=== PATIENT | female | born 1950 | race Caucasian/White ===

== ENCOUNTER 2021-09-15 10:22 | Emergency (ER) | payer MEDICARE, OTHER ==
[~2021-09-15] VITALS: Ht 153.7 cm; Wt 60.5 kg
[2021-09-15 10:29] VITALS: TEMP 98
[2021-09-15 11:00] LABS: COLLECTION METHOD CLEAN CATCH
[2021-09-15 11:08] LABS: MUCOUS Present (NOT PRESENT); PH 6 (5-8); SQUAMOUS EPITHELIAL None Seen /hpf (0-10); URINE APPEARANCE Clear (CLEAR/HAZY); URINE BACTERIA None Seen (NONE SEEN); URINE BILIRUBIN Negative (NEGATIVE); URINE BLOOD Negative (NEGATIVE); URINE COLOR Yellow (YELLOW); URINE GLUCOSE Negative (NEGATIVE); URINE KETONE Negative (NEGATIVE); URINE LEUKOCYTE ESTERASE Negative (NEGATIVE); URINE NITRATE Negative (NEGATIVE); URINE PROTEIN(semi-quant) Negative (NEGATIVE); URINE RBC None Seen /hpf (0-2); URINE UROBILINOGEN Negative (NEGATIVE)
[2021-09-15] MEDS ORDERED: FLEXERIL 1010 MG/TAB PO (11:47)
[2021-09-15] MEDS ORDERED: NORCO 325 MG-51 TAB PO (11:47)
[2021-09-15] MEDS ORDERED: MEDROL 4MG DOSPA4 MG PO (12:00)
[2021-09-15 12:13] VITALS: BP 121/71; PULSE 75
== END 2021-09-15 12:15 | disposition home or self-care (01) ==
LOC: COL.ER 10:22
PROVIDERS: Physician Assistant
DX: M54.16 Radiculopathy, lumbar region (principal); M99.53 Intervertebral disc stenosis of neural canal of lumbar region; I10 Essential (primary) hypertension
CPT/HCPCS: J1885

== ENCOUNTER 2021-11-26 22:21 | Emergency (ER) | payer MEDICARE, OTHER ==
[~2021-11-26] VITALS: Ht 152.4 cm; Wt 61.4 kg
[~2021-11-26 22:21] MED LIST: FLEXERIL 1010 MG/TAB PO; MEDROL 4MG DOSPA4 MG PO; NORCO 325 MG-51 TAB PO
[2021-11-26 23:15] VITALS: BP 169/96; PULSE 93; TEMP 97.3
== END 2021-11-26 23:15 | disposition home or self-care (01) ==
LOC: COL.ER 22:21
DX: I12.9 Hypertensive chronic kidney disease with stage 1 through stage 4 chronic kidney disease, or unspecified chronic kidney disease (principal); N18.9 Chronic kidney disease, unspecified; Z79.899 Other long term (current) drug therapy

== ENCOUNTER → 2024-06-21 | Outpatient (CLI) | payer MEDICARE, OTHER | LOC: MC.RAD 08:45 | DX: Z12.31 Encounter for screening mammogram for malignant neoplasm of breast (principal) ==